=== PATIENT | male | born 1985 | race Caucasian/White ===

== ENCOUNTER 2022-04-07 09:49 | Emergency (ER) | payer OTHER, MEDICAID, SELFPAY ==
[2022-04-07 10:13] VITALS: BP 106/58; PULSE 88; RESP 15; TEMP 37.4; O2SAT 95; BMI 23.0
[2022-04-07 14:15] VITALS: BP 110/60; PULSE 65; O2SAT 98
[2022-04-07 14:30] VITALS: BP 99/54; PULSE 57; O2SAT 98
[2022-04-07 15:00] VITALS: BP 104/56; PULSE 55; O2SAT 96
--- NOTE | 2022-04-07 15:29 | ED_ITS ---
HPI - URI/Sore Throat General Chief Complaint: Fever Stated Complaint: Fever,confusion,stiff neck Time Seen by Provider: 04/07/22 12:19 Source: patient Mode of arrival: Ambulatory History of Present Illness HPI Narrative: This is a 36-year-old male who presents to the emergency department with cough, fever, chills, headache with symptoms that started last night. He denies vomiting, dysuria, or stool changes. He states that he does not have money for any medicine, complains of neck pain and muscle aches, fever. Patient has history of substance abuse in the past, states that he is COVID vaccinated but not influenza vaccinated. Related Data Allergies Allergy/AdvReac Type Severity Reaction Status Date / Time No Known Drug Allergies Allergy Verified 04/07/22 10:13 Review of Systems Review of Systems ROS Unobtainable: All systems reviewed & are unremarkable except as noted in HPI and below Patient History Social History Smoking Status: Current every day smoker Smoking Status: Current every day smoker alcohol intake frequency: holidays/special occasions only Substance Use Type: former substance user and methamphetamine Exam Narrative Exam Narrative: Reviewed vitals signs and nursing notes. General: cooperative, comfortable, in no acute distress, well groomed, sleepy, appears sedated, answers questions appropriately, patient is comfortable HEENT: symmetrical facial expressions, mildly dry mucous membranes, neck full range of motion, Cardiovascular: regular rate and rhythm, no peripheral edema, warm extremities Respiratory: normal effort, able to speak in complete sentences, without wheezing, stridor, or abnormal breath sounds. No retractions or tachypnea. GI: abdomen soft, nontender to palpation, nondistended, without masses, rebound tenderness or exquisite tenderness with exam. MSK: moves all extremities, neurovascularly intact, no weakness, normal tone Skin: brisk capillary refill, without pallor or erythema Neuro: normal speech and cognition, A&O x3, ambulatory, clear speech Psych: mental status is grossly normal, congruent mood, normal affect, pleasant and cooperative Initial Vital Signs Initial Vital Signs: Vital Signs Temperature 99.4 F 04/07/22 10:13 Pulse Rate 88 04/07/22 10:13 Respiratory Rate 15 04/07/22 10:13 Blood Pressure 106/58 L 04/07/22 10:13 Pulse Oximetry 95 04/07/22 10:13 Oxygen Delivery Method 04/07/22 10:13 Course Orders Ordered: ED Orders 04/07/22 16:22 Covid-19 + FLU A/B + RSV - PCR Stat Discontinued Medications Acetaminophen (Acetaminophen 325 Mg Tablet) 975 mg PO NOW ONE Stop: 04/07/22 12:21 Last Admin: 04/07/22 15:42 Dose: 975 mg Documented By: NR Ketorolac Tromethamine (Ketorolac 30 Mg/Ml Vial) 30 mg IM NOW ONE Stop: 04/07/22 12:21 Last Admin: 04/07/22 15:41 Dose: 30 mg Documented By: NR Loratadine (Loratadine 10 Mg Tablet) 10 mg PO NOW ONE Stop: 04/07/22 15:29 Last Admin: 04/07/22 16:27 Dose: Not Given Documented By: NR Vital Signs Vital signs: Vital Signs - 8 hr 04/07/22 14:30 04/07/22 14:30 04/07/22 15:00 Pulse Rate 57 L Blood Pressure 99/54 L 104/56 L Pulse Oximetry 98 04/07/22 15:00 04/07/22 15:30 04/07/22 15:30 Pulse Rate 55 L 54 L Blood Pressure 111/55 L Pulse Oximetry 96 98 04/07/22 16:00 04/07/22 16:00 Pulse Rate 49 L Blood Pressure 106/54 L Pulse Oximetry 95 MDM - URI/Sore Throat Lab Data Labs: Lab Results 04/07/22 04/07/22 Range/Units 10:17 16:22 Chlamy pneumoniae PCR TNP Adenovirus (PCR) TNP B. pertussis DNA (PCR) TNP B.parapertussis DNA PCR TNP Coronavirus OC43 (PCR) TNP Coronavirus HKU1 (PCR) TNP Coronavirus 229E (PCR) TNP SARS-CoV-2 (PCR) TNP Negative Coronavirus NL63 (PCR) TNP Human Metapneumovir PCR TNP Influenza A (RT-PCR) Flu a negative (NEGATIVE) Influenza Type A (PCR) TNP Influenza B (RT-PCR) Flu b negative (NEGATIVE) Influenza Type B (PCR) TNP M. pneumoniae (PCR) TNP Parainfluenza 1 (PCR) TNP Parainfluenza 2 (PCR) TNP Parainfluenza 3 (PCR) TNP Parainfluenza 4 (PCR) TNP RSV (PCR) TNP Negative Entero/Rhino (PCR) TNP MDM Narrative Medical decision making narrative: This is a 36-year-old male who was sent over for evaluation of his upper respiratory infection which started last night, he is had fever, muscle aches, a sore neck with chills. His respiratory panel initially was positive for multiple viruses and the lab sense stay problem with the test, it was Re ran on another machine, was positive for RSV at that time, they retested that and it came back negative for all tested viruses. We have swabbed him again with a 4 pack COVID PCR and will call him if it is positive. He is nontoxic appearing, appears sedated or on strong pain medication but is interacting appropriately. He is nontoxic appearing, without tachycardia, tachypnea hypoxia or systemic symptoms of illness. He was given Tylenol, Toradol and Claritin in the emergency department, and states he does not have money for medications. States that this was helpful and he felt better. Encouraged him to stay hydrated and follow-up with his wellness Center, return for any worsening condition. Other possible diagnosis' considered include; viral URI, influenza, pneumonia, pharyngitis, acute bronchitis, allergic rhinitis, pertussis, sinusitis, appendicitis, dehydration. Rest, drink plenty of fluids, NSAIDS for muscle aches and pains. Return to ED for worsening symptoms such as SOB, chest pain, inability to take adequate oral fluids, fever, or productive cough. Discharge Plan Departure Patient Disposition: Home Clinical Impression: Upper respiratory infection, viral Instructions: DI for Viral Upper Respiratory Infection -- Adult Activity Restrictions/Additional Instructions: *You have been diagnosed with a respiratory illness which is likely a viral illness. This could be a common cold, it was not positive for influenza, COVID or RSV, we retested you and we will call you if it is positive for a reportable virus. Please use Tylenol and ibuprofen if you can for your symptoms, come back to the emergency department if you have worsening symptoms, chills, if you do not feel well. Stay hydrated, remember to eat food, I hope you feel better soon *What to do: *Please continue to take your regular medications as directed. [ ] New medication prescriptions sent to your pharmacy: [ ] [ ] New medication written as a paper prescription [ x] No new medications given *Please follow up with your primary care provider in 2-3 days, call for an appointment. Let them know you were seen in the Emergency Department and that we asked that you be seen for follow-up. We will electronically transmit a record of today's note if your PCP is in our system *If you do not have a primary care provider please contact [phone] [facility] with one of the [facility] primary care providers. *Return to Emergency Department if you should have any new, worsening, or concerning symptoms, such as [fever greater than 101F, chills, worsening pain, persistent vomiting or other bothersome symptoms]. Referrals: Health System [Outside] Visit Report Forms: Patient Portal/API
[2022-04-07 15:30] VITALS: BP 111/55; PULSE 54; O2SAT 98
[2022-04-07] MEDS: KETOROLAC 30 MG/ML VIAL IM (15:41)
[2022-04-07] MEDS: ACETAMINOPHEN 325 MG TABLET 975 MG PO (15:42)
[2022-04-07 16:00] VITALS: BP 106/54; PULSE 49; O2SAT 95
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
[2022-04-07 17:24] LABS: COVID-19 CEPHEID 4-PLEX PCR Negative (Negative); Influenza A - CEPHEID Flu A NEGATIVE (NEGATIVE); Influenza B - CEPHEID Flu B NEGATIVE (NEGATIVE); Respiratory Syncytial Virus Negative (Negative)
== END 2022-04-07 16:27 | disposition home or self-care (01) ==
PROVIDERS: Emergency Medicine; Emergency Provider Nurse Practitioner Critical Care Medicine
DX: J06.9 Acute upper respiratory infection, unspecified (principal); Z20.822 Contact with and (suspected) exposure to COVID-19
CPT/HCPCS: 0241U; 87633; 96372; 99283; J1885

== ENCOUNTER 2022-05-07 09:31 | Emergency (ER) | payer OTHER, MEDICAID, SELFPAY ==
[2022-05-07 09:51] VITALS: BP 134/76; PULSE 71; RESP 18; TEMP 36.8; O2SAT 95; BMI 25.0
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
--- NOTE | 2022-05-07 13:06 | CM.SWNOTE ---
SW ED Note SW consulted to assist with [facility] resources. SW met pt at bedside and asked if he needed any resources. Pt reports that he has a plan to move down to [place] and try to get a job at [employer]. Pt requests [facility] resources for [facility]. SW prints patient list of several shelters in [facility] for men. Pt will discharge with [facility] resources. PINA Barrera
[2022-05-07 13:07] VITALS: BP 136/83; PULSE 79; O2SAT 96
== END 2022-05-07 13:08 | disposition home or self-care (01) ==
PROVIDERS: Emergency Provider Physician Assistant Medical
DX: S00.01XA Abrasion of scalp, initial encounter (principal); M54.2 Cervicalgia; Y04.2XXA Assault by strike against or bumped into by another person, initial encounter
CPT/HCPCS: 70450; 71046; 72125; 99283; 99284

== ENCOUNTER 2022-08-09 12:30 | Emergency (ER) | payer OTHER, MEDICAID, SELFPAY ==
[2022-08-09 12:30] VITALS: BP 128/86; PULSE 95; RESP 14; TEMP 36.7; O2SAT 99; BMI 24.1
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
[2022-08-09 13:47] VITALS: BP 127/82; PULSE 76; RESP 19; O2SAT 98
[2022-08-09] MEDS: BACITRACIN 28 GM OINT 1 APPLIC TOP (13:59)
== END 2022-08-09 14:07 | disposition home or self-care (01) ==
PROVIDERS: Emergency Provider Emergency Medicine
DX: T24.002A Burn of unspecified degree of unspecified site of left lower limb, except ankle and foot, initial encounter (principal); X19.XXXA Contact with other heat and hot substances, initial encounter
CPT/HCPCS: 99283

== ENCOUNTER → 2022-08-13 13:53 | Outpatient (CLI) | payer OTHER, MEDICAID, SELFPAY | PROVIDERS: PCP Nurse Practitioner; Referring Provider Emergency Medicine; Visit Provider Nurse Practitioner Family | DX: T24.331A Burn of third degree of right lower leg, initial encounter (principal); F17.210 Nicotine dependence, cigarettes, uncomplicated; Z79.891 Long term (current) use of opiate analgesic | CPT/HCPCS: 16020; 87070; 87075; 87077; 87147; 87186; 87205; 99203; 99213 ==

== ENCOUNTER → 2022-08-20 13:04 | Outpatient (CLI) | payer OTHER, MEDICAID, SELFPAY | PROVIDERS: PCP Nurse Practitioner; Referring Provider Emergency Medicine; Visit Provider Nurse Practitioner Family | DX: T24.331A Burn of third degree of right lower leg, initial encounter (principal); L08.9 Local infection of the skin and subcutaneous tissue, unspecified; F17.210 Nicotine dependence, cigarettes, uncomplicated | CPT/HCPCS: 16020; 99213 ==

== ENCOUNTER → 2022-08-27 13:13 | Outpatient (CLI) | payer OTHER, MEDICAID, SELFPAY | PROVIDERS: PCP Nurse Practitioner; Referring Provider Nurse Practitioner; Visit Provider Nurse Practitioner Family | DX: T24.331A Burn of third degree of right lower leg, initial encounter (principal); L08.9 Local infection of the skin and subcutaneous tissue, unspecified; Z49.02 Encounter for fitting and adjustment of peritoneal dialysis catheter | CPT/HCPCS: 16020; 99212 ==

== ENCOUNTER → 2022-09-03 13:20 | Outpatient (CLI) | payer OTHER, MEDICAID, SELFPAY | PROVIDERS: PCP Nurse Practitioner; Referring Provider Emergency Medicine; Visit Provider Nurse Practitioner Family | DX: T24.331A Burn of third degree of right lower leg, initial encounter (principal); L08.9 Local infection of the skin and subcutaneous tissue, unspecified; A49.02 Methicillin resistant Staphylococcus aureus infection, unspecified site | CPT/HCPCS: 16020 ==

== ENCOUNTER → 2022-09-16 10:13 | Outpatient (CLI) | payer OTHER, MEDICAID, SELFPAY | PROVIDERS: PCP Nurse Practitioner; Referring Provider Emergency Medicine; Visit Provider Surgery | DX: T24.331D Burn of third degree of right lower leg, subsequent encounter (principal); F17.290 Nicotine dependence, other tobacco product, uncomplicated; F15.21 Other stimulant dependence, in remission; F11.21 Opioid dependence, in remission | CPT/HCPCS: 99213 ==

== ENCOUNTER → 2022-09-17 11:30 | Outpatient (CLI) | payer OTHER, MEDICAID, SELFPAY ==
--- NOTE | 2022-09-17 | DI.MRI.S_ITS ---
PROCEDURE: MR ABDOMEN WO/W CON INDICATIONS: Disorder of adrenal gland, unspecified TECHNIQUE: Coronal HASTE, axial 2D FLASH in- and [id number]; axial breath-hold T2 FSE. Dynamic axial VIBE during the administration of contrast; post-contrast coronal VIBE or 2D FLASH with fat saturation from the hepatic dome to the iliac crests. Optional diffusion weighted imaging and ADC may be performed. COMPARISON: [facility], CT, CT ANGIO ABDOMEN PELVIS, 05/16/2022, 6:56. [facility], CT, CT ABDOMEN PELVIS WITH CONTRAST, 08/31/2022, 16:14. FINDINGS: Image quality: Excellent. Lung bases: No basal pleural effusions. Heart size is normal. Normal distal esophagus. Solid organs: A large heterogeneous mass in the right suprarenal retroperitoneum measures roughly 13.1 x 13.4 x 15.3 cm. There are dependently layering lobulated T1 and T2 isointense components, and anteriorly layering homogeneous T1 and T2 hyperintense signal. There is no internal enhancement postcontrast. There is downward mass effect on the right kidney and anterior mass effect on the liver. The right adrenal gland is not seen separate from this mass. The left adrenal gland appears normal. The liver, decompressed gallbladder, biliary tree, pancreas, spleen, and kidneys otherwise appear normal. Nodes and vessels: No retroperitoneal or mesenteric adenopathy by size criteria. Aorta and inferior vena cava are normal in size. Bowel and peritoneum: Stomach is filled with ingested material. Visible loops of small bowel are normal. There is moderately increased quantity of solid stool present throughout the visible loops of colon. No free intraperitoneal or retroperitoneal fluid. Bones and soft tissues: No ventral hernias. Bone marrow is normal in overall signal. IMPRESSION: 1. Heterogeneous, nonenhancing 15.3 cm right adrenal mass is more well defined compared to prior studies, consistent with organizing large right adrenal hematoma. 2. The left adrenal gland appears normal. Dictated by: Lizette Laguerre M.D. on 09/17/2022 at 17:57 Approved by: Lizette Laguerre M.D. on 09/17/2022 at 18:09
== END ==
PROVIDERS: PCP Nurse Practitioner; Referring Provider Nurse Practitioner; Visit Provider Nurse Practitioner
DX: E27.8 Other specified disorders of adrenal gland (principal)
CPT/HCPCS: 74183; A9579